=== PATIENT | female | born 1970 | race Caucasian/White ===

== ENCOUNTER 2017-03-05 20:23 | Emergency (ER) | payer SELFPAY ==
[2017-03-05 20:55] VITALS: BP 126/75
--- NOTE | 2017-03-05 21:01 | UC ---
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 kept working but couldn't move her arm last night woke up today with mild achy neck pain and left arm pain constant aching elbow and forearm pain that radiates into her hand hasn't taken any medication for pain - History of Current Complaint Chief Complaint: UCUpperExtremity Stated Complaint: LEFT ARM/HAND/NECK INJURY (WC) Time Seen by Provider: 03/05/17 20:48 Hx Obtained From: Patient Hx Last Menstrual Period: 02/26/17 - Allergies/Home Medications Allergies/Adverse Reactions: Allergies Allergy/AdvReac Type Severity Reaction Status Date / Time Codeine Allergy GI Upset Verified 03/05/17 20:48 Diphenhydramine Allergy Palpitation Verified 03/05/17 20:48 [From Benadryl] s Erythromycin Allergy Hives Verified 03/05/17 20:48 Home Medications: Home Medications Naproxen TAB* [Naprosyn 250 mg TAB*] 500 mg PO ONCE PRN 03/05/17 [History Confirmed 03/05/17] PMH/Surg Hx/FS Hx/Imm Hx Previously Healthy: Yes - Surgical History Surgical History: Yes Surgery Procedure, Year, and Place: hernia repair as a child, tonsillectomy, right ankle & knee surgery, lipoma removal from hip, 2 exp laps, carpal tunnel right hand - Family History Known Family History: Negative: Cardiac Disease, Hypertension, Diabetes - Social History Occupation: Employed Full-time Lives: With Family Alcohol Use: None Substance Use Type: None Smoking Status (MU): Heavy Every Day Tobacco Smoker Type: Cigarettes Amount Used/How Often: 1 PPD Review of Systems Constitutional: Negative Skin: Negative Eyes: Negative ENT: Negative Respiratory: Negative Cardiovascular: Negative Gastrointestinal: Negative Genitourinary: Negative Motor: Negative Neurovascular: Negative Musculoskeletal: Other: - left arm pain, neck pain Neurological: Negative Psychological: Negative All Other Systems Reviewed And Are Negative: Yes Physical Exam Triage Information Reviewed: Yes Appearance: No Pain Distress, Well-Nourished Vital Signs: Initial Vital Signs Temp 98.4 F 03/05/17 20:49 Pulse 73 03/05/17 20:49 Resp 16 03/05/17 20:49 BP 126/75 03/05/17 20:49 Pulse Ox 96 03/05/17 20:49 Vital Signs Reviewed: Yes Eyes: Positive: Conjunctiva Clear ENT: Positive: Pharynx normal, TMs normal Neck: Positive: No Lymphadenopathy, Other: - no c-spine tenderness tenderness throughout trapezius musculature Respiratory: Positive: Lungs clear, Normal breath sounds, No respiratory distress, No accessory muscle use Cardiovascular: Positive: RRR, No Murmur, Pulses Normal Abdomen Description: Positive: Nontender, Soft Bowel Sounds: Positive: Present Musculoskeletal: Positive: Other: - LUE-No bony deformities or tenderness of bony prominences. No anatomical snuff box tenderness; Full ROM in DIP, PIP, MCP , & carpal joints & with supination and pronation. No bony deformities, in olecranon, medial, lateral epicondyle elbow. slight edema in forearm and hand Neurological: Positive: Alert Psychological Exam: Normal Skin Exam: Normal Upper Extremity Course/Dx - Course Course Of Treatment: exam completed. x-ray negative for fracures. will treat contusions with ice, NSAIDS, and rest, no lifting from 03/06-03/12/17 - Differential Dx/Diagnosis Differential Diagnosis/HQI/PQRI: Contusion, Fracture (Closed), Strain, Sprain Provider Diagnoses: left arm contusion. neck pain Discharge - Discharge Plan Condition: Stable Disposition: HOME Patient Education Materials: Contusion in Adults (ED), RICE Therapy (ED) Forms: *Work Release Additional Instructions: Increase fluids and rest Take acetaminophen or ibuprofen for fever or pain Please review your discharge instructions. If your symptoms do not improve please call your primary care provider or return to urgent care.
[2017-03-05] MEDS ORDERED: Ibuprofen TAB* 400 MG PO ONE (21:07)
--- NOTE | 2017-03-05 21:33 | RAD ---
INDICATION: Left forearm injury COMPARISON: None TECHNIQUE: AP, lateral, and oblique views were obtained. FINDINGS: The bony structures, joint spaces, and soft tissues are normal for age. IMPRESSION: NEGATIVE EXAMINATION
--- NOTE | 2017-03-05 21:35 | RAD ---
INDICATION: Left elbow injury COMPARISON: None TECHNIQUE: AP, lateral, and oblique views were obtained. FINDINGS: The bony structures, joint spaces, and soft tissues are normal for age. IMPRESSION: NEGATIVE EXAMINATION.
== END 2017-03-05 21:48 | disposition home or self-care (01) ==
LOC: UCCORT 20:23
DX: S40.022A Contusion of left upper arm, initial encounter (principal); M54.2 Cervicalgia; F17.210 Nicotine dependence, cigarettes, uncomplicated; W18.30XA Fall on same level, unspecified, initial encounter; Z88.5 Allergy status to narcotic agent; Z88.1 Allergy status to other antibiotic agents; Z88.8 Allergy status to other drugs, medicaments and biological substances; Y92.9 Unspecified place or not applicable
CPT/HCPCS: 99202; A9270-GY; G0463